=== PATIENT | female | born 1960 | race Caucasian/White ===

== ENCOUNTER 2017-01-13 06:37 | Day surgery (SDC) | payer OTHER ==
[2017-01-13] MEDS ORDERED: Lactated Ringers 1,000 ML IV SCH (06:45)
[2017-01-13] MEDS ORDERED: Sodium Chloride 0.9% 10 ML Syringe FLUSH PRN (06:45)
[2017-01-13] MEDS ORDERED: Propofol 200 MG/20 ML SDV IV ONE (07:45)
--- NOTE | 2017-01-13 08:35 | PCM.OPNOTE ---
- General Post-Op/Procedure Note Date of Surgery/Procedure: 01/13/17 Operative Procedure(s): c scope with bx Findings: sigmoid polyp Pre Op Diagnosis: hx of colon polyp Post-Op Diagnosis: sigmoid polyp Anesthesia Technique: MAC Primary Surgeon: Espinoza Conway Anesthesia Provider: Jerson Pierson Pathology: sigmoid polyp Complications: None Condition: Good Free Text/Narrative:: see dictation
[2017-01-13 10:31] VITALS: BP 121/68
--- NOTE | 2017-01-13 13:13 | OR ---
DATE OF OPERATION: 01/13/2017 SURGEON: Espinoza Conway MD PROCEDURE PERFORMED: Colonoscopy with hot loop snare. PREOPERATIVE DIAGNOSIS: Personal history of colon polyps. POSTOPERATIVE DIAGNOSIS: Sigmoid polyp, distal. INDICATIONS FOR PROCEDURE: This is a 56-year-old white female, who presents for followup colonoscopy. She has a personal history of colon polyps. She was offered and accepted same. DESCRIPTION OF OPERATION: After an excellent IV sedation was administered, digital rectal exam was performed. No marked abnormality was noted. Flexible colonoscope was inserted and advanced to the cecum without difficulty. The following findings were noted. Ascending colon, unremarkable. Transverse colon, unremarkable. Descending colon, unremarkable. Sigmoid, a small polypoid lesion, biopsied with the hot loop snare and sent for permanent. Rectum and anus unremarkable. Colon was deflated, scope was removed. The patient tolerated the procedure well, and was taken to recovery in good condition. /[id number] /EVANL
== END 2017-01-13 09:31 | disposition home or self-care (01) ==
LOC: FB.SDS 06:37
PROVIDERS: ATTEND Surgery
DX: Z12.11 Encounter for screening for malignant neoplasm of colon (principal); D12.5 Benign neoplasm of sigmoid colon; E03.9 Hypothyroidism, unspecified; I10 Essential (primary) hypertension; K21.9 Gastro-esophageal reflux disease without esophagitis; Z88.8 Allergy status to other drugs, medicaments and biological substances; Z79.899 Other long term (current) drug therapy; Z96.652 Presence of left artificial knee joint; Z98.890 Other specified postprocedural states; Z98.51 Tubal ligation status
CPT/HCPCS: 45385; 88305; J2704; J7120

== ENCOUNTER 2022-05-22 06:56 | Day surgery (SDC) | payer BC ==
[2022-05-22] MEDS ORDERED: Propofol 200 MG/20 ML SDV IV ONE (06:57)
[2022-05-22] MEDS ORDERED: Sodium Chloride 0.9% 10 ML Syringe FLUSH PRN (07:00)
[2022-05-22] MEDS: Lactated Ringers 1,000 ML IV SCH (07:30)
[2022-05-22 08:48] VITALS: BP 110/68; PULSE 68
== END 2022-05-22 08:45 | disposition home or self-care (01) ==
LOC: FB.SDS 06:56
PROVIDERS: ATTEND Surgery
DX: Z12.11 Encounter for screening for malignant neoplasm of colon (principal); I10 Essential (primary) hypertension; E03.9 Hypothyroidism, unspecified; E78.2 Mixed hyperlipidemia; E66.9 Obesity, unspecified; Z68.36 Body mass index [BMI] 36.0-36.9, adult; Z80.0 Family history of malignant neoplasm of digestive organs; Z98.890 Other specified postprocedural states; Z86.010 Personal history of colon polyps; Z79.899 Other long term (current) drug therapy; Z88.8 Allergy status to other drugs, medicaments and biological substances; Z79.890 Hormone replacement therapy
CPT/HCPCS: 00812-QZ; J2704; J7120